=== PATIENT | male | born 1950 | race African-American/Black ===

== ENCOUNTER 2017-05-25 00:21 | Emergency (ER) | payer MEDICAID ==
[2017-05-25] MEDS ORDERED: Diatrizoate Meglumine/Diatri 30 mL Sol ONE (00:32)
--- NOTE | 2017-05-25 00:36 | ED Physician Chart ---
ED Chief Complaint/HPI - Patient Information Date Seen:: 05/25/17 Time Seen:: 00:21 Chief Complaint:: G-TUBE NEEDS TO BE REPLACED History of Present Illness:: THIS IS A CUSTODIAL PATIENT WHO WAS SENT HERE FOR THE G-TUBE TO BE REPLACED. THE PATIENT IS A CHRONICALLY ILL PATIENT WAS HAS HAD A STROKE WITH LEFT SIDED WEAKNESS, DIABETES, HYPERTENSION AND DIFFICULTY WITH CHOKING ON ORAL INTAKE. Allergies:: Allergies Allergy/AdvReac Type Severity Reaction Status Date / Time No Known Allergies Allergy Verified 05/25/17 00:26 Vitals:: Vital Signs - 8 hr 05/25/17 00:21 Temp 96.9 F HR 84 RR 18 BP 105/67 O2 Sat % 96 Historian:: Medical Records Review:: Nurse's Note Reviewed ED Review of Systems - Review of Systems General/Constitutional: No fever, No chills, No weight loss, No weakness, No diaphoresis, No edema, No loss of appetite Skin: No skin lesions, No rash, No bruising Head: No headache, No light-headedness Eyes: No loss of vision, No pain, No diplopia ENT: No earache, No nasal drainage, No sore throat, No tinnitus Neck: No neck pain, No swelling, No thyromegaly, No stiffness, No mass noted Cardio Vascular: No chest pain, No palpitations, No PND, No orthopnea, No edema Pulmonary: No SOB, No cough, No sputum, No wheezing GI: No nausea, No vomiting, No diarrhea, No pain, No melena, No hematochezia, No constipation, No hematemesis, Other (G-TUBE IS OUT) G/U: No dysuria, No frequency, No hematuria Musculoskeletal: No bone or joint pain, No back pain, No muscle pain Endocrine: No polyuria, No polydipsia Psychiatric: No prior psych history, No depression, No anxiety, No suicidal ideation Hematopoietic: No bruising, No lymphadenopathy Allergic/Immuno: No urticaria, No angioedema Neurological: No syncope, No focal symptoms, No weakness, No paresthesia, No headache, No seizure, No dizziness, No confusion, No vertigo ED Past Medical History - Past Medical History Obtainable: Yes Past Medical History: HTN, DM, CVA/TIA Family History: None Social History: Non Smoker, No Alcohol, No Drug Use, Care Facility Surgical History: PEG/GTube Psychiatricy History: None Medication: Reviewed Family Medical History - Family Member Mother History Unknown: Yes ED Physical Exam - Physical Examination General/Constitutional: Awake, Well-developed, well-nourished, Alert, No distress, GCS 15, Non-toxic appearing, Ambulatory Head: Atraumatic Eyes: Lids, conjuctiva normal, PERRL, EOMI Skin: Nl inspection, No rash, No skin lesions, No ecchymosis, Well hydrated, No lymphadenopathy ENMT: External ears, nose nl, Nasal exam nl, Lips, teeth, gums nl Neck: Nontender, Full ROM w/o pain, No JVD, No nuchal rigidity, No bruit, No mass, No stridor Respiratory: Nl effort/Exclusion, Clear to Auscultation, No Wheeze/Rhonchi/Rales Cardio Vascular: RRR, No murmur, gallop, rubs, NL S1 S2 GI: No tenderness/rebounding/guarding, No organomegaly, No hernia, Normal BS's, Nondistended, No mass/bruits, No McBurney tenderness Other GI comments:: THE G-TUBE IS NO LONGER NOTED ONLY THE OPENING FOR IT. : No CVA tenderness Extremities: No tenderness or effusion, Full ROM, normal strength in all extremities, No edema, Normal digits & nails Neuro/Psych: Alert/oriented, DTR's symmetric, Normal sensory exam, Normal motor strength, Judgement/insight normal, Mood normal, Normal gait, No focal deficits Misc: Normal back, No paraspinal tenderness ED Labs/Radiology/EKG Results - Radiology Results Results: KUB = G-TUBE PLACEMENT VERIFIED IN THE [facility] ED Assessment - Assessment General Assessment: G-TUBE REPLACEMENT ED Septic Shock - . 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
--- NOTE | 2017-05-25 09:44 | Diagnostic Imaging Report ---
Upper GI limited HISTORY: G-tube placement COMPARISON: None FINDINGS: Sitecore Developer view demonstrates copious amount of stool and gas-filled loops of bowel. Degenerative changes of the spine are noted. Atherosclerosis is noted. The second image demonstrates contrast opacification of the stomach. IMPRESSION: Intraluminal confirmation of patient's percutaneous gastric feeding tube. Copious stool throughout the large bowel. Please correlate clinically for constipation.
== END 2017-05-25 04:00 ==
LOC: ER 00:21
DX: K94.23 Gastrostomy malfunction (principal); I10 Essential (primary) hypertension; E11.9 Type 2 diabetes mellitus without complications; Z86.73 Personal history of transient ischemic attack (TIA), and cerebral infarction without residual deficits
CPT/HCPCS: 74000-TC; Z7502; Z7610